=== PATIENT | female | born 1960 | race Caucasian/White ===

== ENCOUNTER → 2018-09-19 | Outpatient (CLI) | payer BC | LOC: LAB 12:30 | DX: M85.80 Other specified disorders of bone density and structure, unspecified site (principal); R03.0 Elevated blood-pressure reading, without diagnosis of hypertension; R53.83 Other fatigue; R70.0 Elevated erythrocyte sedimentation rate; R21 Rash and other nonspecific skin eruption; M25.562 Pain in left knee; R79.82 Elevated C-reactive protein (CRP) ==

== ENCOUNTER 2022-06-19 09:25 | Emergency (ER) | payer BC ==
[2022-06-19 09:51] LABS: BASO # 0.02 K/mm3 (0.02-0.10); EOS # 0.08 K/mm3 (0.04-0.40); EOS % 1.4 % (1.0-5.0); HEMATOCRIT 42.8 % (37.0-47.0); HEMOGLOBIN 14.1 g/dL (12.5-16.0); LYMPH# 1.99 K/mm3 (1.50-4.00); MEAN CELL VOLUME 88 fl (78-100); MEAN CORPUSCULAR HEMOGLOBIN 29 pg (27-31); MEAN CORPUSCULAR HGB CONC 33 g/dL (33-37); MEAN PLATELET VOLUME 8.7 fl (7.4-10.4); MONO # 0.29 K/mm3 (0.20-0.80); NEU # 3.45 K/mm3 (1.40-6.50); PLATELET COUNT 266 K/mm3 (130-400); RED BLOOD COUNT 4.84 M/mm3 (4.10-5.30); RED CELL DISTRIBUTION WIDTH 12.1 % (11.5-14.5); WHITE BLOOD COUNT 5.8 K/mm3 (4.8-10.8)
[2022-06-19 09:55] LABS: ALBUMIN 3.8 g/dL (3.4-4.8); SODIUM 139 mmol/L (136-145)
[2022-06-19 09:57] LABS: CALCIUM 9.5 mg/dL (8.3-10.5)
[2022-06-19 09:58] LABS: GLUCOSE 110 mg/dL (65-105); TOTAL PROTEIN 6.5 g/dL (6.2-8.1)
[2022-06-19 09:59] LABS: CARBON DIOXIDE 24 mmol/L (23-31)
[2022-06-19 10:00] LABS: TOTAL BILIRUBIN 0.3 mg/dL (0.2-1.2)
[2022-06-19 10:03] LABS: AST-SGOT 17 U/L (5-34)
[2022-06-19 10:04] LABS: ALT/SGPT 19 U/L (0-55)
[2022-06-19 10:08] LABS: PARTIAL THROMBOPLASTIN TIME 22.3 SECONDS (21.0-32.0); PROTHROMBIN TIME 10.6 SECONDS (9.0-12.0)
[2022-06-19 10:12] LABS: TROPONIN-I < 0.030 ng/mL (<0.030)
[2022-06-19 10:36] LABS: LIPASE 1346 U/L (8-78)
[2022-06-19 12:37] LABS: URINE WBC 0 /hpf (0-3)
[2022-06-19] MEDS ORDERED: NORCO 325 MG-51 TA1 PO (13:02)
[2022-06-19] MEDS ORDERED: ZOFRAN ODT4 MG PO (13:02)
[2022-06-19 13:03] LABS: PH-URINE 7.5 (5.0 - 8.0); URINE APPEARANCE CLEAR; URINE BILIRUBIN NEGATIVE (NEGATIVE); URINE BLOOD NEGATIVE (NEGATIVE); URINE COLOR YELLOW; URINE GLUCOSE NEGATIVE (NEGATIVE); URINE KETONE NEGATIVE (NEGATIVE); URINE LEUKOCYTE ESTERASE NEGATIVE (NEGATIVE); URINE NITRATE NEGATIVE (NEGATIVE); URINE PROTEIN(semi-quant) NEGATIVE (NEGATIVE); URINE UROBILINOGEN NORMAL (NORMAL)
[2022-06-19 13:17] VITALS: BP 143/64
== END 2022-06-19 13:10 | disposition home or self-care (01) ==
LOC: ED 09:25
PROVIDERS: Nurse Practitioner
DX: K85.90 Acute pancreatitis without necrosis or infection, unspecified (principal); Z20.822 Contact with and (suspected) exposure to COVID-19; Z28.310 Unvaccinated for COVID-19
CPT/HCPCS: J7030; Q9967

== ENCOUNTER → 2024-03-11 | Outpatient (CLI) | payer MEDICARE ==
[~2024-03-11] MED LIST: NORCO 325 MG-51 TA1 PO; ZOFRAN ODT4 MG PO
[2024-03-12 00:02] LABS: ESTRADIOL 19 pg/mL (()); PROGESTERONE 0.1 ng/mL (()); TESTOSTERONE 27 ng/dL (13-36)
== END ==
LOC: LAB 10:07
DX: K51.90 Ulcerative colitis, unspecified, without complications (principal); E03.8 Other specified hypothyroidism; G47.33 Obstructive sleep apnea (adult) (pediatric); Z79.899 Other long term (current) drug therapy